=== PATIENT | male | born 1995 | race Caucasian/White ===

== ENCOUNTER 2016-10-20 11:24 | Day surgery (SDC) | payer OTHER ==
[2016-10-20 12:06] VITALS: BMI 20.3
[2016-10-20] MEDS ORDERED: ROPIVACAINE HCL 0.5% 30ML VIAL ONE (12:36)
[2016-10-20] MEDS ORDERED: MIDAZOLAM HCL 2 MG/2 ML SINGLE DOSE VIAL ONE (13:33)
[2016-10-20] MEDS ORDERED: PROPOFOL 20 ML ONE (13:33)
[2016-10-20] MEDS ORDERED: oxyCODONE HCL 5 MG TABLET PO PRN (13:54)
[2016-10-20] MEDS ORDERED: ONDANSETRON 4 MG/2 ML VIAL IVPUSH PRN (13:54)
[2016-10-20] MEDS ORDERED: LACTATED RINGERS SOLUTION 1,000 ML IV SCH (14:00)
[2016-10-20] MEDS ORDERED: HYDROmorphone HCL/PF 1 MG/ML VIAL (FOR PYXIS CHARGING ONLY) ONE (14:27)
[2016-10-20] MEDS ORDERED: ONDANSETRON 4 MG/2 ML VIAL ONE (16:08)
[2016-10-20] MEDS ORDERED: oxyCODONE HCL 5 MG TABLET ONE ×2 (17:08→17:33)
[2016-10-20 17:46] VITALS: TEMP 97.6
[2016-10-20 17:48] VITALS: PULSE 92
[2016-10-20 18:11] VITALS: BP 126/84
--- NOTE | 2016-10-21 09:02 | OP ---
DATE OF OPERATION: 10/20/2016 PREOPERATIVE DIAGNOSIS: 1. Right wrist triangular fibrocartilage complex tear. 2. Right wrist status post distal radius open reduction internal fixation with retained deep implant with loosening. 3. Possible scapholunate ligament tear. POSTOPERATIVE DIAGNOSIS: 1. Right wrist triangular fibrocartilage complex tear. 2. Right wrist status post distal radius open reduction internal fixation with retained loose hardware. 3. Partial scapholunate ligament tear. OPERATIVE PROCEDURE: 1. Right wrist operative arthroscopy with debridement of triangular fibrocartilage complex tear and radiocarpal joint. 2. Right wrist removal of wrist prosthesis. SURGEON: Nicole Shearer MD SENSOR OPERATOR: ALEENA England ANESTHESIA: General. COMPLICATIONS: None. ESTIMATED BLOOD LOSS: Minimal. INDICATIONS: The patient is a 21-year-old male with the above findings, indicated for operative treatment. The risks, benefits, and alternatives were discussed with the patient at length, and proper informed consent was obtained. PROCEDURE: After proper identification of the patient and the correct operative site, the patient was brought to the operating room and placed supine on the operating table with prominences well padded. General anesthesia was provided by the anesthesiologist adequate for the procedure. Right upper extremity was prepped and draped in the usual sterile fashion. Well-padded tourniquet was placed with a sterile prep. Esmarch bandage was used to exsanguinate the right upper extremity. Tourniquet was inflated to 250 mmHg. Wrist arthroscopy was performed first. This was done through a 3-4 and a 4-5 portal. Both portals were made with a skin incision only in blunt dissection down to the joint capsule. Radiocarpal joint was observed and found to have diffuse synovitis and scar tissue, and this was debrided with mechanical shaver. Although there were mild to moderate intraarticular cartilage defects, the majority of the distal radial articular surface as well as the proximal scaphoid, proximal lunate, and proximal triquetral articular surfaces were in good condition. The volar radiocarpal ligaments appeared intact. Scapholunate ligament was found to have partial and full-thickness tearing of the proximal portion, but the dorsal portion was intact. This was debrided with mechanical shaver. The lunotriquetral ligament was intact. The triangular fibrocartilage complex had a large central tear, which was not repairable. This was debrided with mechanical shaver. There was no evidence of instability of the distal radioulnar joint. Mild chondromalacia of the ulnar head was noted. Arthroscope was introduced into the mid carpal joint where the lunotriquetral interval was tight. The scapholunate interval had mild laxity, but there was no gap and no gross instability. This was likely consistent with a low-grade partial tear of the scapholunate ligament. At this point, it was determined that there would not be any significant benefit for scapholunate reconstruction. Arthroscope was then removed from the wrist. A second incision was then made over the volar aspect of the wrist in line with the flexor carpi radialis tendon along the line of previous incision. Incision was taken sharply to the skin with blunt dissection through the subcutaneous and deep tissues, retracting the flexor carpi radialis along with the contents of the carpal canal in an ulnar direction for the remainder of the procedure. This was done bluntly and gently. The plate was identified and freed of any soft tissue over it. Several screws were found to have backed out, but the remainder were in place. There was mild fraying of the flexor tendon to the index finger, but there was no evidence of impending rupture. This was gently debrided. Plate was then removed, and the volar surface of the distal radius was smoothed out with a rasp. The fracture did appear to be completely healed. Wound was irrigated with copious amounts of normal saline and repaired in layers using 4-0 Vicryl and 4-0 0 nylon. Sterile dressings and a splint were placed. Patient was reversed from anesthesia and brought to recovery in stable condition. He tolerated the procedure well. Modesto Porter, the scheduling assistant, was integral throughout this procedure. This procedure could not have been performed without a skilled operative scheduling assistant. NICOLE SHEARER M.D. [id number]
== END 2016-10-20 18:06 | disposition home or self-care (01) ==
LOC: FASU 11:24
PROVIDERS: ATTEND Orthopaedic Surgery Hand Surgery
PROC: 0RPN0JZ Removal of Synthetic Substitute from Right Wrist Joint, Open Approach (ICD-10-PCS; 2016-10-20)
PROC: 0RBN4ZZ Excision of Right Wrist Joint, Percutaneous Endoscopic Approach (ICD-10-PCS; principal; 2016-10-20 14:29)
DX: S63.591A Other specified sprain of right wrist, initial encounter (principal); S63.511A Sprain of carpal joint of right wrist, initial encounter; T84.038A Mechanical loosening of other internal prosthetic joint, initial encounter; X58.XXXA Exposure to other specified factors, initial encounter; Y93.9 Activity, unspecified; Y92.9 Unspecified place or not applicable; Z96.60 Presence of unspecified orthopedic joint implant
CPT/HCPCS: 73110-TC-RT; 94760